=== PATIENT | female | born 1985 | race Caucasian/White ===

== ENCOUNTER → 2018-05-19 | Outpatient (CLI) | payer OTHER ==
--- NOTE | 2018-05-19 14:32 | KCIC ---
MR of the right knee Indication: Right knee pain, medial. Patellar dislocation 6 weeks ago. Continued pain. Technique: The standard multiplanar sequences are obtained. FINDINGS: Artifact: No significant image degradation. Medial meniscus:Intact. Lateral meniscus: Intact. Anterior cruciate ligament: Intact Posterior cruciate ligament: Intact Medial collateral ligament: Intact. Lateral structures: * Iliotibial band: Intact. * Lateral collateral ligament: Intact. * Biceps femoris tendon: Intact * Popliteus tendon attachment: Intact Extensive mechanism: * Patellar tendon: Intact * Quadriceps tendon: Intact * Retinacular structures: Intact Fluid: No significant joint effusion. No significant Butler's cyst. Intra-articular bodies: None visualized Joint compartments * patellofemoral joint:Intact * medial compartment:Intact * lateral compartment:Intact Bones: No significant lesion or acute fracture. Soft tissue: Unremarkable Impression: No acute findings or evidence of internal derangement. Electronically signed by: Galindo Steen MD (05/19/2018 2:28 PM) [facility]
== END | disposition home or self-care (01) ==
LOC: KCIC MRI 08:54
PROVIDERS: ATTEND Orthopaedic Surgery
DX: S83.094D Other dislocation of right patella, subsequent encounter (principal); X58.XXXD Exposure to other specified factors, subsequent encounter
CPT/HCPCS: 73721